=== PATIENT | male | born 1990 | race African-American/Black ===

== ENCOUNTER 2019-04-16 19:38 | Emergency (ER) | payer MEDICAID ==
[~2019-04-16] VITALS: Ht 167.6 cm; Wt 96.4 kg
[2019-04-16] MEDS ORDERED: HYDROCHLOROTHIAZIDE 25MG TABLET PO ONE (21:00)
[2019-04-16 21:15] VITALS: BP 159/79
== END 2019-04-16 21:24 | disposition home or self-care (01) ==
LOC: ER 19:38
DX: I10 Essential (primary) hypertension (principal); F17.210 Nicotine dependence, cigarettes, uncomplicated; F14.10 Cocaine abuse, uncomplicated
CPT/HCPCS: 99283